=== PATIENT | male | born 1990 | race Caucasian/White ===

== ENCOUNTER → 2023-07-08 | Outpatient (CLI) | payer OTHER ==
[~2023-07-08] VITALS: Ht 185.4 cm; Wt 97.7 kg
[2023-07-08 10:07] VITALS: BP 130/81; PULSE 80; TEMP 98.7
[2023-07-08 10:40] VITALS: BP 132/81; PULSE 81
== END ==
LOC: COL.RAD 09:50
DX: M54.16 Radiculopathy, lumbar region (principal)
CPT/HCPCS: J0665; J3301

== ENCOUNTER → 2023-08-27 | Outpatient (CLI) | payer OTHER ==
[~2023-08-27] VITALS: Ht 185.4 cm; Wt 96.2 kg
[2023-08-27 07:15] VITALS: BP 136/82; PULSE 82; TEMP 98.1
[2023-08-27 08:25] VITALS: BP 132/80; PULSE 78
--- NOTE | 2023-08-27 08:43 | NUR ---
pt leaves in wheelchair with staff to [facility]
== END ==
LOC: COL.RAD 07:03
DX: M54.16 Radiculopathy, lumbar region (principal)
CPT/HCPCS: J0665; J3301